=== PATIENT | female | born 2000 | race Caucasian/White ===

== ENCOUNTER 2020-07-29 02:36 | Inpatient (IN) | payer OTHER ==
[~2020-07-29] VITALS: Ht 160 cm; Wt 78.2 kg
[2020-07-29] VITALS (29 sets, daily range): BP systolic 98–153; BP diastolic 52–95; PULSE 87–118; TEMP 98.6–99.5
--- NOTE | 2020-07-29 03:00 | NUR ---
Pt arrived on unit via wheelchair, escorted by boyfriend and with complaints of contractions. Pt reports contractions every "couple of minutes" since 7pm. Pt denies any leaking of fluid or vaginal bleeding and reports normal movement. EFM and toco monitors started. Vital signs WNL. SVE by this RN /. Plan of care for labor assessment reviewed with pt and boyfriend.
[2020-07-29 04:08] LABS: BASO # 0.1 (0.0-0.2); BASO % 0.4 % (0.0-2.0); EOS # 0.5 (0.0-0.7); EOS % 3.1 % (0-4.0); GRAN % 74.5 % (42.2-75.2); HEMATOCRIT 34.7 % (35.0-45.0); HEMOGLOBIN 11.8 g/dl (12.0-15.0); LYMPH # 2.5 (1.2-3.4); LYMPH % 15.8 % (20.0-51.0); MEAN CELL VOLUME 93 fl (80.0-95.0); MEAN CORPUSCULAR HEMOGLOBIN 32 pg (26.0-32.0); MEAN CORPUSCULAR HGB CONC 34 g/dl (33.0-37.0); MEAN PLATELET VOLUME 9.9 fl (7.4-10.4); MONO # 0.9 (0.1-0.6); MONO % 5.7 % (1.7-9.3); PLATELET COUNT 275 K/mm3 (130-400); RED BLOOD COUNT 3.73 M/mm3 (4.10-5.30); REDCELL DISTRIBUTION WIDTH-CV 12.7 % (11.5-14.5)
[2020-07-29] MEDS ORDERED: PRENATAL (04:13)
[2020-07-29 05:07] LABS: TRICYCLIC ANTIDEPRESS URINE NEGATIVE
--- NOTE | 2020-07-29 07:40 | NUR ---
0725 - E 9-10/100/-1. Very bulgy bag of water, copious amount of bloody show noted. Pt feeling pressure with contractions and coughing, intermittent early declerations noted with contractions. Dr. Vaca notified, continue current plan of care
--- NOTE | 2020-07-29 08:02 | NUR ---
Pt refuses COVID swab at this time.
--- NOTE | 2020-07-29 11:27 | NUR ---
0824 - SVE /0. Dr. Vaca on unit and notified. 0850 - Dr. Vaca to pt bedside. SVE per provider /0. AROM at this time, clear fluid noted. FHR strip reviewed, plan to start pushing. 0902 - Pt starts pushing with contractions at this time. RN remains at bedside. 0915 - Variable decelerations noted with pushing, recover quickly with baseline at 140. 0930 - Lt mec fluid noted at this time. 1000 - Variable decelerations continue, difficulty tracing FHR during pushing. 1030 - Difficulty tracing FHR due to maternal movement and pushing with contractions. 1035 - Dr. Vaca called to room for delivery. Vick Reilly RN of nursery called to bedside. 1037 - Dr. Vaca to pt bedside. Per physician, pt and room prepped for delivery. Pt continues pushing with physician. 1049 - Male infant delivered via , loose nuchal x2 reduced by Dr. Vaca. Terminal mec. placed on mother's abdomen where dried and stimulated. Care of transferred to Vick Reilly RN of nursery. Cord gases collected per physician, cord blood collected. 1054 - Spontaneous delivery of placenta by Dr. Vaca. Fundal massage provided, Pitocin started per protocol. 2nd degree laceration repaired by Dr. Vaca, see physician notes. Bladder drained with [place], 50ml returned. Pericare provided, ice pack placed. Pt repositioned for comfort. Pt denies further needs at this time.
--- NOTE | 2020-07-29 21:30 | NUR ---
2130- NURSE TO BEDSIDE TO PERFORM COVID SWABS NOW THAT PT IS WILLING TO HAVE THEM COLLECTED. PROCEDURE DISCUSSED AND QUESTIONS ANSWERED. NURSE COLLECTS BOTH RAPID AND SEND OUT SWABS, ONE IN EACH NOSTRIL. PT TOLERATED WELL. INFORMED PT THAT A RESULT COULD BE EXPECTED IN 30 MINUTES TO 3 HOURS DEPENDING ON HOW BUSY THE LAB IS AND THAT NURSE WOULD LET HER KNOW THE RESULTS WHEN AVAILABLE. PT VERBALIZES UNDERSTANDING.
[2020-07-30 01:00] VITALS: BP 151/73; PULSE 98; TEMP 98.3
[2020-07-30 08:45] VITALS: BP 116/76; PULSE 81; TEMP 98
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
[2020-07-30 17:14] VITALS: BP 124/70; PULSE 91; TEMP 98.5
[2020-07-30 19:00] VITALS: BP 130/67; PULSE 89; TEMP 99.1
[2020-07-30] MEDS ORDERED: MOTRIN 800800 MG/TAB PO (20:51)
--- NOTE | 2020-07-31 00:31 | NUR ---
PT IS VERY TIRED AND DOES NOT WANT TO DO ANYTHING EXCEPT LAY IN BED. THIS RN ENCOURAGED PT TO WALK IN PHILIP AND SHOWER. WATCH THE TEACHING DVD'S. DISCUSSED GOING HOME FEEDING PLAN, PT GETS VERY FRUSTRATED WITH BRST FEEDING. SHE NEEDS TO BE REMINDED VERY OFTEN TO SUPPORT BABY'S HEAD AND BODY. LOTS OF TEACHING DONE FOB IS HELPFUL AND SUPPORTIVE
[2020-07-31 07:30] VITALS: BP 114/53; PULSE 77; TEMP 98.9
--- NOTE | 2020-07-31 09:03 | NUR ---
Initial visit attempt; Family resting, Mail Handlers Supervisor left card of congratulations for the of their son and information regarding the availability of spiritual care at [facility].
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
== END 2020-07-31 15:05 | disposition home or self-care (01) | DRG 807 ==
LOC: LDRO 02:36 → LDR 03:21 → LDRO 05:23 → OB 05:24 → LDR 05:24 → OB 14:43
PROVIDERS: ADMIT Obstetrics & Gynecology
PROC: 10E0XZZ Delivery of Products of Conception, External Approach (ICD-10-PCS; principal; 2020-07-29)
PROC: 0KQM0ZZ Repair Perineum Muscle, Open Approach (ICD-10-PCS; 2020-07-29)
PROC: 10907ZC Drainage of Amniotic Fluid, Therapeutic from Products of Conception, Via Natural or Artificial Opening (ICD-10-PCS; 2020-07-29)
DX: O99.02 Anemia complicating childbirth (principal); Z37.0 Single live birth; O99.334 Smoking (tobacco) complicating childbirth; F17.210 Nicotine dependence, cigarettes, uncomplicated; O77.0 Labor and delivery complicated by meconium in amniotic fluid; Z3A.39 39 weeks gestation of pregnancy; O70.1 Second degree perineal laceration during delivery
CPT/HCPCS: J2405; J2590; J7120